=== PATIENT | female | born 1960 | race American Indian/Alaskan Native ===

== ENCOUNTER 2016-10-15 08:00 | Emergency (ER) | payer OTHER, BC ==
[2016-10-15 08:25] VITALS: BP 127/87
[2016-10-15 08:51] LABS: Basophils % (Auto) 0.8 % (0.0-1.8); Eosinophils % (Auto) 1.9 % (0.0-4.3); Hematocrit 37.8 % (30.3-42.9); Hemoglobin 12.1 gm/dl (10.1-14.3); Mean Corpuscular HGB Conc 32 % (30-34); Mean Corpuscular Hemoglobin 28 pg (28-32); Mean Corpuscular Volume 87 fl (79-97); Platelet Count 245 K/mm3 (140-440); Red Blood Count 4.34 M/mm3 (3.65-5.03); Red Cell Distribution Width 13.5 % (13.2-15.2); White Blood Count 4.6 K/mm3 (4.5-11.0)
[2016-10-15 09:12] LABS: Alanine Aminotransferase 28 units/L (7-56); Albumin 4.3 g/dL (3.9-5); Albumin/Globulin Ratio 1.3 %; Alkaline Phosphatase 101 units/L (35-129); Anion Gap 20 mmol/L; BUN/Creatinine Ratio 21.25; Bilirubin,Total 0.3 mg/dL (0.1-1.2); Blood Urea Nitrogen 17 mg/dL (7-17); Calcium 9.3 mg/dL (8.4-10.2); Carbon Dioxide 23 mmol/L (22-30); Chloride 102.2 mmol/L (98-107); Glucose 168 mg/dL (65-100); Lipase 66 units/L (13-60); Potassium 4.4 mmol/L (3.6-5.0); Sodium 141 mmol/L (137-145); Total Protein 7.7 g/dL (6.3-8.2)
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
--- NOTE | 2016-10-15 20:10 | ED Elopement Review ---
ED Pt Elopement review - Results review Lab results: Laboratory Tests 10/15/16 10/15/16 08:34 08:34 WBC 4.6 RBC 4.34 Hgb 12.1 Hct 37.8 MCV 87 MCH 28 MCHC 32 RDW 13.5 Plt Count 245 Lymph % (Auto) 33.0 Maries % (Auto) 11.9 H Eos % (Auto) 1.9 Baso % (Auto) 0.8 Lymph # 1.5 Maries # 0.6 Eos # 0.1 Baso # 0.0 Seg Neutrophils % 52.4 Seg Neutrophils # 2.4 Sodium 141 Potassium 4.4 Chloride 102.2 Carbon Dioxide 23 Anion Gap 20 BUN 17 Creatinine 0.8 Estimated GFR > 60 BUN/Creatinine Ratio 21.25 Glucose 168 H Calcium 9.3 Total Bilirubin 0.3 AST 16 ALT 28 Alkaline Phosphatase 101 Total Protein 7.7 Albumin 4.3 Albumin/Globulin Ratio 1.3 Lipase 66 H - Call Back decision Pt Call Back Decision: Pt to F/U with PMD
== END 2016-10-15 11:20 | disposition left against medical advice (07) ==
LOC: ED 08:00
DX: M54.2 Cervicalgia (principal); M25.511 Pain in right shoulder; M25.512 Pain in left shoulder; Z53.21 Procedure and treatment not carried out due to patient leaving prior to being seen by health care provider; V89.2XXA Person injured in unspecified motor-vehicle accident, traffic, initial encounter; Y93.9 Activity, unspecified; Y92.9 Unspecified place or not applicable; Y99.9 Unspecified external cause status
CPT/HCPCS: 36415; 71020; 72040; 80053; 83690; 85025; 93005; 93010